=== PATIENT | male | born 1945 | race Caucasian/White ===

== ENCOUNTER → 2016-05-02 | Outpatient (REF) | payer MEDICARE ==
[2016-05-02 18:33] LABS: FREE T4 1.23 NG/DL (0.76-1.46)
== END ==
LOC: M LABDRAW1 15:42
PROVIDERS: ATTEND Internal Medicine Endocrinology, Diabetes & Metabolism
DX: E89.0 Postprocedural hypothyroidism (principal)

== ENCOUNTER → 2016-07-22 | Outpatient (REF) | payer MEDICARE | LOC: M LAB REF 13:09 | PROVIDERS: ATTEND Internal Medicine | DX: E03.9 Hypothyroidism, unspecified (principal) ==

== ENCOUNTER → 2016-07-22 | Outpatient (REF) | payer MEDICARE ==
[2016-07-22 16:20] LABS: FREE T4 1.25 NG/DL (0.76-1.46)
== END ==
LOC: M LABDRAW1 14:43
PROVIDERS: ATTEND Internal Medicine Endocrinology, Diabetes & Metabolism
DX: E89.0 Postprocedural hypothyroidism (principal)

== ENCOUNTER → 2017-02-06 | Outpatient (CLI) | payer MEDICARE ==
[2017-02-06 14:01] LABS: FREE T4 1.28 NG/DL (0.76-1.46)
== END ==
LOC: M LABDRAW1 11:37
PROVIDERS: ATTEND Internal Medicine Endocrinology, Diabetes & Metabolism
DX: E89.0 Postprocedural hypothyroidism (principal)

== ENCOUNTER → 2017-10-26 | Outpatient (REF) | payer MEDICARE | LOC: M LABDRAW1 10:58 | DX: E89.0 Postprocedural hypothyroidism (principal) | CPT/HCPCS: 84443 ==